=== PATIENT | male | born 1955 | race Caucasian/White ===

== ENCOUNTER 2023-04-14 08:06 | Outpatient (CLI) | payer MEDICARE, BC, SELFPAY | END 2023-04-14 08:07 | disposition home or self-care (01) | LOC: WOUND 08:14 | PROVIDERS: Visit Provider Physician Assistant | DX: I89.0 Lymphedema, not elsewhere classified (principal) | CPT/HCPCS: G0463 ==

== ENCOUNTER 2023-07-02 07:30 | Outpatient (RCR) | payer MEDICARE, BC, SELFPAY ==
[2023-05-14 07:39] VITALS: BMI 44.6
[2023-05-14 14:37] VITALS: BMI 44.6
--- NOTE | 2023-05-14 14:42 | OT.OPLE2 ---
OT Outpatient Lymphedema Eval* OT Outpatient Lymphedema Eval* Start: 05/14/23 07:38 Freq: Status: Active Protocol: Document 05/14/23 07:39 BECKIE (Rec: 05/14/23 14:36 BECKIE [id number]) E-signed By Nubia Morgan, OTR/L, CLT OT Outpatient Evaluation Details Type Type Eval Complexity Medium Insurance Information Insurance Information Insurance Information Blue Cross/Blue Shield, Medicare B Insurance Information Comments Primary is BCBS and Secondary is Medicare Patient doesn't wish to retire until he is 71-72 years old. Height and Weight Height Height 180.34 cm Weight Weight 145.15 kg Weight Measurement Method Standing Scale BMI Body Mass Index (kg/m?) 44.6 BMI Classification Extreme Obesity Obesity Class III OT OP Lymphedema Evaluation Current Condition/Medical Diagnosis Referring Provider Felicita Shah PA-C Treatment Diagnosis Lymphedema, I89.0 Date Of Onset Chronic Other Precautions Patient was being seen at the wound care clinic for a wound on the L medial/anterior pre-tibial (acquired on ). This is now healed. Medical Contraindications HTN Medical History Medical History Obesity,Heart Disease,Asthma/ Respiratory Disorder Medical History Comments Arrhythmia, tachycardia and HTN (denies CHF and CAD). 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 Subjective Subjective My goal is too reduce the size of both legs, they weren' t this big before (patient referring to last year) I really want the coloring of my legs to improve, this left leg is getting a darker purple color and when I saw vascular they told me that my blood flow in my legs is fine Living Situation Current Living Situation Home With Spouse Or SO Current Living Situation Comments Patient lives in [place] with his second oldest son. Patient Difficulties Difficulties With Any Of The Following Walking,Dressing,Reaching Feet & Toes,Bathing/Showering, Preparing Meals,Sleeping In Bed Impairments Impairments Loss of Mobility,Difficulties With ADLs,Limb Heaviness,Poor Clothing Fit Problem List Problem List Limited Knowledge of Lymphedema Treatment/Condition /Precautions,Limited Knowledge of Skin Care & Infection Precautions,Significant Risk For Infection For Lymphedema Related Complications,Does Not Have a HEP,Does Not Know How To Bandage For Limb Reduction, Does Not Have Appropriate Compression Garments For LT Management,Presents With Increased Fall Risk Secondary To Lymphedema,Presents With Impaired Mobility/ROM Exercise History Does Patient Exercise Regularly Yes Pain Pain Yes ROM/Strength ROM/Strength Comments Patient is strong, both his UE and LE have 5/5 strength bilaterally Previous Treatment Previous Treatment For Swelling/ Compression Garment Lymphedema Previous Treatment/Current Home Program Patient does not have a HEP Compression History Does Patient Currently Wear Compression Yes During Daytime Compression During Daytime Comments Patient had over the counter compression stockings but these did not properly fit him . They were too short, ending prior to the distal knee crease. Patient will need to be measured and appropriately sized for proper compression. Does Patient Currently Wear Compression No At Night Current Swelling (Location/Pitting/Texture) Pitting Scale: 0 = No pitting 1+ Tissue returns to normal almost immediately 2+ Tissue returns after 15-30 seconds 3+ Tissue returns after 1-1/2 minutes 4+ Tissue returns after 2-3 minutes N/A Tissue no longer pits due to induration Tissue texture: Soft or indurated Clinical Presentation Area bilateral LE's have +4 pitting edema at the feet/ankles and non-pitting further up the calf (induration). Triggering Event & Start Date of Patient reports long standing Swelling/Lymphedema swelling in bilateral LE's but that it got worse last year. Skin Changes Hemosiderin Staining, Papillomas,Stasis Dermatitis, Fibrosis,Limited Skin Mobility Skin Changes Comments Weeping of bilateral LE's Capillary Refill Slow Swelling Comments On EVAL: 05/14/23 the L LE was 8.5 cm's larger than the R LE (patient stated the L is always the problem leg Hx of knee surgery on the L LE Type of Swelling Secondary Staging Staging Stage 2 Circumferential Measurements Lower Extremity Left Lower Extremity Great Toe (in cm) 9.5 MTP (in cm) 27 Arch (in cm) 28.4 Calcaneus (in cm) 33.4 10 cm above Calcaneus Measurement 32.9 20 cm above Calcaneus Measurement 42 30 cm above Calcaneus Measurement 50.1 40 cm above Calcaneus Measurement 47 50 cm above Calcaneus Measurement 60 Total Girth in cm 330.3 LE Volume C 874.51 LE Volume D 1121.56 LE Volume E 1691.87 LE Volume F 1876.36 LE Volume G 2288 Lower Extremity Volume Total in cm 7,852.30 Right Lower Extremity Great Toe (in cm) 9.1 MTP (in cm) 27.3 Arch (in cm) 27.9 Calcaneus (in cm) 33.2 10 cm above Calcaneus Measurement 32.1 20 cm above Calcaneus Measurement 41.2 30 cm above Calcaneus Measurement 48 40 cm above Calcaneus Measurement 45 50 cm above Calcaneus Measurement 58 Total Girth in cm 321.8 LE Volume C 848.39 LE Volume D 1074.39 LE Volume E 1585.99 LE Volume F 1721 LE Volume G 2121 Lower Extremity Volume Total in cm 7,350.77 Assessment Assessment 67-year-old male patient referred for Lymphedema therapy from the wound care clinic (LE wound is now healed ) but bilateral LE's are weeping. Patient has never been seen for this diagnosis prior and will be provided with educational materials including Nutrition, Lymphedema Risk Factors, Optimal Skin Hygiene, How to prevent infection, Self- Massage Drainage and an individualized home exercise program. Patient was pleasant, alert, orientated, asked great questions in session, was an active listener to information presented and showed signs of motivation/ willingness to follow the presented protocol in POC. Therapist took measurements of bilateral LE's and explained to patient what would occur in the next 4 sessions. PLAN: manual lymph drainage, teach patient self-massage, fit and size patient for compression wraps, customize a home exercise program that fits the needs and ability of patient. Patient was a pleasure to work with today and is anticipated to achieve goals written in this POC. Patient Goals Patient Goals My goal is too reduce the size of both legs, they weren' t this big before (patient referring to last year) I really want the coloring of my legs to improve, this left leg is getting a darker purple color and when I saw vascular they told me that my blood flow in my legs is fine Short Term Goals (# of Weeks) 6 Click To Default Short Term Goals Standard Goals Short Term Goals 1. Goal: Patient and or caregiver will understand lymphedema precautions to decrease risk of infection and further lymphedema related complications 2. Goal: Patient will develop a tolerance for wearing multi- layer, short stretch bandages between treatment sessions to facilitate limb decongestion 3. Goal: Patient will experience decreased pitting edema in order to improve tissue health and decrease risk for infection/cellulitis 4. Goal: Patient will perform HEP with minimal assistance in order to improve lymphatic flow and venous return 5. Goal: Patient will perform self MLD protocol with minimal assistance to help reduce swelling and improve ROM and mobility Click To Default Retirement Goals Standard Goals Walking Dragline Oiler Goals 6. Goal: Patient and/or caregiver will be independent with short-stretch compression bandaging for continued volume reduction and prevention of recurrence 7. Goal: Patient will experience increased ROM and mobility in order to improve safety and independence with transfers and mobility 8. Goal: Patient will be independent with donning and doffing of compression garments which will enable regular daily garment wear 9. Goal: Patient and/or caregiver will be independent with HEP and lymphedema management to reduce risk for edema relapse and to reduce risk for infection Treatment Plan Treatment Plan Evaluation,Edema Control,Joint Mobilization,Manual Therapy, Wound Care/Scar Management, Therapeutic Exercise, Therapeutic Activities,Self- Care/Home Management,Education Expected Frequency 1-2x Week Expected Duration 12+ Certification Certification Statement I Certify That: Therapy Services Provided, Therapy Plan Established, Therapy Plan Reviewed Certification Information Clinic ID # [id number] Initial Certification Date 05/14/23 Recertification Due Date 09/11/23 Provider Signature Shows Agreement With POC & Medical Necessity Physician Comment/Change Comment or Changes Physician NPI Number #
[2023-05-21 07:40] VITALS: BMI 44.6
[2023-06-04 08:24] VITALS: BMI 44.6
[2023-06-11 08:25] VITALS: BMI 44.6
[2023-07-02 08:27] VITALS: BMI 44.6
[2023-10-08 11:11] VITALS: BMI 44.6
== END 2023-10-08 13:09 | disposition home or self-care (01) ==
PROVIDERS: Visit Provider Physician Assistant
DX: I89.0 Lymphedema, not elsewhere classified (principal); Z51.89 Encounter for other specified aftercare
CPT/HCPCS: 97140; 97166; 97535